=== PATIENT | female | born 1980 | race Caucasian/White ===

== ENCOUNTER 2023-04-16 06:21 | Day surgery (SDC) | payer MEDICAID ==
[2023-04-16] MEDS ORDERED: Midazolam 1 MG/ML 2 ML SDV IV ONE (06:22)
[2023-04-16] MEDS ORDERED: fentaNYL 100 MCG/2 ML SDV IV ONE (06:22)
[2023-04-16] MEDS: Dextrose 5%-0.45% NaCl 1,000 ML IV SCH (06:52)
[2023-04-16] MEDS ORDERED: Midazolam 1 MG/ML 2 ML SDV ONE (07:41)
[2023-04-16] MEDS ORDERED: fentaNYL 100 MCG/2 ML SDV ONE (07:41)
[2023-04-16] MEDS: fentaNYL 100 MCG/2 ML SDV IV ONE ×2 (07:48→07:49)
[2023-04-16] MEDS: Midazolam 1 MG/ML 2 ML SDV IV ONE ×2 (07:49→07:50)
== END 2023-04-16 09:20 | disposition home or self-care (01) ==
LOC: DL.ENDO 06:21
PROVIDERS: ATTEND Internal Medicine Gastroenterology
DX: D50.0 Iron deficiency anemia secondary to blood loss (chronic) (principal); K31.7 Polyp of stomach and duodenum; E66.09 Other obesity due to excess calories; Z68.29 Body mass index [BMI] 29.0-29.9, adult; Z88.0 Allergy status to penicillin
CPT/HCPCS: 43239; 87077; J2250; J3010; J7042

== ENCOUNTER 2023-04-18 07:07 | Day surgery (SDC) | payer MEDICAID ==
[2023-04-18] MEDS ORDERED: Midazolam 1 MG/ML 2 ML SDV IV ONE (07:08)
[2023-04-18] MEDS ORDERED: fentaNYL 100 MCG/2 ML SDV IV ONE (07:08)
[2023-04-18] MEDS: Dextrose 5%-0.45% NaCl 1,000 ML IV SCH (07:15)
[2023-04-18] MEDS ORDERED: Midazolam 1 MG/ML 2 ML SDV ONE (08:14)
[2023-04-18] MEDS ORDERED: fentaNYL 100 MCG/2 ML SDV ONE (08:15)
[2023-04-18] MEDS: fentaNYL 100 MCG/2 ML SDV IV ONE ×6 (08:20→08:32)
[2023-04-18] MEDS: Midazolam 1 MG/ML 2 ML SDV IV ONE ×9 (08:21→08:34)
== END 2023-04-18 10:30 | disposition home or self-care (01) ==
LOC: DL.ENDO 07:07
PROVIDERS: ATTEND Internal Medicine Gastroenterology
DX: D50.0 Iron deficiency anemia secondary to blood loss (chronic) (principal); E66.09 Other obesity due to excess calories; Z68.29 Body mass index [BMI] 29.0-29.9, adult; Z88.0 Allergy status to penicillin
CPT/HCPCS: 45378; J2250; J3010; J7042